=== PATIENT | female | born 1980 | race Caucasian/White ===

== ENCOUNTER 2017-02-23 08:54 | Emergency (ER) | payer MEDICAID ==
[~2017-02-23] VITALS: Ht 172.7 cm; Wt 120.2 kg
[2017-02-23 09:02] VITALS: BP 122/82
[2017-02-23] MEDS ORDERED: KETOROLAC TROMETH 60MG/2ML VIAL IM ONE (09:30)
== END 2017-02-23 11:03 | disposition home or self-care (01) ==
LOC: ER 08:54
DX: S39.012A Strain of muscle, fascia and tendon of lower back, initial encounter (principal); S80.01XA Contusion of right knee, initial encounter; G89.29 Other chronic pain; Z88.0 Allergy status to penicillin; Z88.2 Allergy status to sulfonamides; V43.52XA Car driver injured in collision with other type car in traffic accident, initial encounter; Y93.89 Activity, other specified; Y99.8 Other external cause status; Y92.410 Unspecified street and highway as the place of occurrence of the external cause
CPT/HCPCS: 72100; 73562; 96372; 99284; J1885

== ENCOUNTER 2021-10-03 09:57 | Day surgery (SDC) | payer MEDICAID ==
[~2021-10-03] VITALS: Ht 172.7 cm; Wt 113.4 kg
[~2021-10-03 09:57] MED LIST: ALBUAER3 IN; ATO40T PO; CETI10TA2 PO; CRANCAP7 OR; DexAMETHasone SOD PHOS 10MG/1ML VIAL INJ ONE; ERGO1CAP23 PO; FERR-7 PO; GABA400C11 PO; GLIP10TA16 PO; HYDR-4072 PO; HYDR50TA69 PO; LAMO150T2 PO; LISI2.5T47 PO; MAGN1TAB29 PO; MELA3TAB27 PO; MEPERIDINE HCL (25 MG/ML) 1ML VIAL ONE; METF-372 PO; METH750T22 PO; MIDAZOLAM HCL 2MG/2ML 2ml VIAL (1mg/ml) ONE; NYST1OIN25 EX; OMEP20TA PO; ONDANSETRON HCL 4 MG/2 ML VIAL ONE; PREG150C PO; PROPOFOL 10 MG/ML 20 ML IV ONE; ROCURONIUM 10MG/ML 10ML VIAL IV ONE; SERT50TA19 PO; SITA100T7 PO; SODIUM CHLORIDE LOCK 10 ML ONE; TOPI50TA53 PO; TRIATAB3 OR; VENL1TAB99 PO; fentaNYL CITRATE 100 MCG/2 ML VL ONE
[2021-10-03] MEDS ORDERED: BUPIVACAINE W/ EPINEPH 0.5% INJ 50ML MDV IJ ONE (10:06)
[2021-10-03] MEDS ORDERED: EPINEPHrine HCL 1 MG/1 ML AMP ONE (10:07)
[2021-10-03] MEDS ORDERED: CLINDAMYCIN 600MG IV 50 ML IV ONE (10:08)
[2021-10-03] MEDS ORDERED: ACCU-CHEK COMFORT CURVE STRIP VI ONE (10:45)
[2021-10-03] MEDS ORDERED: HYDROmorphone HCL 2 MG/ML VL/or syr IV PRN (10:45)
[2021-10-03] MEDS ORDERED: METOCLOPRAMIDE HCL 5MG/ml INJ 2ml VIAL IV PRN (10:45)
[2021-10-03] MEDS ORDERED: MORPHINE SULFATE 4 MG/ML SYR/VIAL IV PRN (10:45)
[2021-10-03] MEDS ORDERED: DexAMETHasone SOD PHOS 10MG/1ML VIAL INJ ONE (10:59)
[2021-10-03] MEDS ORDERED: ASPI-498 OR (12:07)
[2021-10-03] MEDS ORDERED: METOCLOPRAMIDE HCL 5MG/ml INJ 2ml VIAL IV ONE (12:10)
[2021-10-03] MEDS ORDERED: MORPHINE SULF PF 5 MG/10 ML VIAL ONE (12:17)
[2021-10-03] MEDS ORDERED: HYDROmorphone HCL 2 MG/ML VL/or syr ONE (12:19)
[2021-10-03] MEDS ORDERED: HYDROmorphone HCL 2 MG/ML VL/or syr IV ONE ×4 (12:20→12:50)
[2021-10-03] MEDS ORDERED: MORPHINE SULFATE 4 MG/ML SYR/VIAL IV ONE (13:25)
[2021-10-03 13:40] VITALS: BP 110/69
== END 2021-10-03 13:40 | disposition home or self-care (01) ==
LOC: SUR 09:57
PROVIDERS: ATTEND Orthopaedic Surgery Sports Medicine
DX: S83.242A Other tear of medial meniscus, current injury, left knee, initial encounter (principal); M94.262 Chondromalacia, left knee; I10 Essential (primary) hypertension; E11.42 Type 2 diabetes mellitus with diabetic polyneuropathy; F32.A Depression, unspecified; G43.909 Migraine, unspecified, not intractable, without status migrainosus; J44.9 Chronic obstructive pulmonary disease, unspecified; K21.9 Gastro-esophageal reflux disease without esophagitis; E66.9 Obesity, unspecified; F41.9 Anxiety disorder, unspecified; Z68.38 Body mass index [BMI] 38.0-38.9, adult; Z20.822 Contact with and (suspected) exposure to COVID-19; Z98.890 Other specified postprocedural states; Z79.899 Other long term (current) drug therapy; Z88.0 Allergy status to penicillin; Z88.1 Allergy status to other antibiotic agents; Z87.891 Personal history of nicotine dependence; X58.XXXA Exposure to other specified factors, initial encounter; Y93.89 Activity, other specified; Y92.89 Other specified places as the place of occurrence of the external cause; Y99.8 Other external cause status
CPT/HCPCS: 29882; 82962; J0171; J1100; J1170; J2175; J2250; J2270; J2405; J2704; J2765; J3010; J3490; U0003